=== PATIENT | male | born 1985 | race Two or more races ===

== ENCOUNTER 2018-12-14 06:08 | Emergency (ER) | payer SELFPAY ==
[~2018-12-14 06:08] MED LIST: ONDANSETRON HCL 4 MG/2 ML VIAL ONE
== END 2018-12-14 06:49 | disposition home or self-care (01) ==
LOC: ER 06:12
DX: S43.004A Unspecified dislocation of right shoulder joint, initial encounter (principal); X58.XXXA Exposure to other specified factors, initial encounter; Y93.89 Activity, other specified; Y99.8 Other external cause status; Y92.89 Other specified places as the place of occurrence of the external cause
CPT/HCPCS: 73020; 96374; 99283; J2405